=== PATIENT | female | born 1995 | race Caucasian/White ===

== ENCOUNTER 2018-03-03 01:52 | Emergency (ER) | payer OTHER ==
[~2018-03-03] VITALS: Ht 170.2 cm; Wt 61.4 kg
[2018-03-03 02:14] VITALS: TEMP 96.7
[2018-03-03] MEDS ORDERED: SYNTHROID0.088 MG/T PO (02:19)
[2018-03-03 07:31] VITALS: BP 109/75; PULSE 92
== END 2018-03-03 07:35 | disposition home or self-care (01) ==
LOC: COL.ER 01:52
DX: F10.129 Alcohol abuse with intoxication, unspecified (principal); E03.9 Hypothyroidism, unspecified; Y90.8 Blood alcohol level of 240 mg/100 ml or more